=== PATIENT | male | born 1970 | race Caucasian/White ===

== ENCOUNTER → 2019-10-30 12:18 | Outpatient (CLI) | payer OTHER, SELFPAY ==
[2019-10-30 13:36] LABS: Add Manual Diff / Slide Review NO; Basophils Absolute Auto 0 /uL (0-100); Basophils Percent Auto 0.7 % (0-2); Eosinophils Absolute Auto 0 /uL (0-450); Eosinophils Percent Auto 0.6 % (2-4); Hematocrit 23.6 % (41-53); Lymphocytes Absolute Auto 1100 /uL (1100-4500); Lymphocytes Percent Auto 23.2 % (25-40); Mean Corpuscular Hemoglobin 30.9 PG (26-34); Monocytes Absolute Auto 400 /uL (0-900); Monocytes Percent Auto 9.4 % (3-14); Neutrophils Absolute Auto 3200 /uL (1500-7000); Neutrophils Percent Auto 66.1 % (50-75); Platelet Count 225 X10^3/uL (150-400); Red Cell Distribution Width 12.4 % (11.6-14.8); White Blood Cell Count 4.8 X10^3/uL (4.5-11.0)
[2019-10-30 14:08] LABS: BUN Creatinine Ratio 17.1 (6-22); Blood Urea Nitrogen 12 mg/dL (9-20); Carbon Dioxide 30 mmol/L (22-32); Chloride 107 mmol/L (98-107); Estimated Glomerular Filt Rate > 60.0 mL/min (>60); Glucose 112 mg/dL (70-100); HEMOLYSIS < 15 (0-50); Potassium 4.2 mmol/L (3.4-5.1); Sodium 141 mmol/L (137-145)
[2019-10-30 15:01] LABS: HEMOLYSIS < 15 (0-50); Iron 33 ug/dL (49-181)
[2019-10-30 15:13] LABS: Percent Iron Saturation 11 % (20-50); Total Iron Binding Capacity 294 ug/dL (261-462); Transferrin 229 mg/dL (206-381)
[2019-10-30 21:15] LABS: Campylobacter Not Detected (Not Detect); Clostridium difficile toxin AB Not Detected (Not Detect); Enteroaggregative E.coli Not Detected (Not Detect); Enteropathogenic E.coli Not Detected (Not Detect); Enterotoxigenic E.coli It/st Not Detected (Not Detect); Plesiomonsa shigelloides Not Detected (Not Detect); Salmonella Not Detected (Not Detect); Shiga-like toxin-prod E.coli Not Detected (Not Detect); Vibrio Not Detected (Not Detect); Vibrio cholerae Not Detected (Not Detect); Yersinia enterocolitica Not Detected (Not Detect)
[2019-10-30 21:16] LABS: Adenovirus F 40/41 Not Detected (Not Detect); Astrovirus Not Detected (Not Detect); Cryptosporidium Not Detected (Not Detect); Cyclospora cayetanensis Not Detected (Not Detect); Entamoeba histolytica Not Detected (Not Detect); Giardia lamblia Not Detected (Not Detect); Norovirus GI/GII Not Detected (Not Detect); Rotavirus A Not Detected (Not Detect); Sapovirus Not Detected (Not Detect); Shigella/Enteroinvasive E.coli Not Detected (Not Detect)
== END ==
PROVIDERS: Specialist; Family Provider Internal Medicine; PCP Internal Medicine; Referring Provider Internal Medicine; Visit Provider Internal Medicine
DX: K92.2 Gastrointestinal hemorrhage, unspecified (principal); D64.9 Anemia, unspecified; R19.7 Diarrhea, unspecified
CPT/HCPCS: 36415; 80048; 83540; 83550; 85025; 87507

== ENCOUNTER 2019-10-30 15:30 | Inpatient (IN) | payer OTHER, SELFPAY ==
[2019-10-30] VITALS (7 sets, daily range): BP systolic 102–129; BP diastolic 54–73; PULSE 68–79; RESP 16–20; TEMP 36.4–37.5; O2SAT 98–100; BMI 25.3
--- NOTE | 2019-10-30 17:21 | PM.HP.1 ---
History of Present Illness History of Present Illness Date Patient Seen: 10/30/19 Time Patient Seen: 16:00 Chief complaint: GI BLEED Narrative: The patient is a gentleman who has been having red blood per rectum for at least the last 5 days. Never had this before. He is not quite certain how much bloody is loss but he says he feels really lousy and has been getting dizzy sometimes on standing. The blood is not black but rather dark red. The amount is difficult for him to estimate and it is variable. Does not really have abdominal pain though he does have some cramping at times. That is intermittent. He has not really had diarrhea until he started bleeding and now he is having more frequent stools. The patient has Been eating very light for the last few days. He had a normal colonoscopy performed late last year at [facility]. He was seen in the emergency room at [place] and was given a bowel prep. He was told to take half of it to clean everything out but that did not stop his bleeding. Patient History Surgical History (Updated 10/30/19 @ 17:27 by Kirit Hinkle MD) History of tonsillectomy (Acute) History of vasectomy (Acute) Family & Social History Social History: household members spouse,children Prior Living Arrangements House Safety & Behavioral: Feels Safe in Current Yes Environment Been Physically Hurt or No Threatened By a Person Suicidal Ideation Description None Suicide Plan Description No Plan Tobacco & Substance use: Smoking Status Never smoker alcohol intake frequency 0-2 drinks per day Substance Use Type does not use Meds Home Medications and Allergies Home Medications Medication Instructions Recorded Confirmed Type cetirizine 10 mg tablet 10 mg PO DAILY 10/30/19 10/30/19 History diphenhydramine HCl 25 mg capsule 25 mg PO BEDTIME PRN 10/30/19 10/30/19 History triamcinolone acetonide 0.1 % 1 applictn TOP DAILY 10/30/19 10/30/19 History topical cream zolpidem 5 mg tablet 5 mg PO BEDTIME PRN 10/30/19 10/30/19 History Allergies Allergy/AdvReac Type Severity Reaction Status Date / Time No Known Drug Allergies Allergy Verified 10/30/19 15:01 Review of Systems Review of Systems Narrative: He is basically healthy. ROS: Yes All systems reviewed with the patient and are negative except as otherwise documented Exam Narrative Exam Narrative: Cooperative no apparent distress. Eyes are nonicteric. Pupils equal round reactive to light. Conjunctivae are pale. [place]. Patient's skin is pale. No color in his cheeks. His neck is supple. There are no nodes in the neck or supraclavicular areas. Trachea is midline and mobile. Thyroid is not enlarged. Lungs are clear to auscultation without rales or rhonchi. Equal percussion. Heart regular rate and rhythm without murmur gallop. Sounds hyperdynamic. No bruit in the neck no heave lift or thrill. Abdomen is scaphoid soft nontender. No masses. Liver and spleen are not enlarged. He has a very small reducible umbilical hernia of which he was unaware. He is alert and oriented x3. Speech rate and content are appropriate affect is appropriate. On rectal exam his external exam is unremarkable. He does have some visible flex of maroon stool near his anal verge. No ulcerations or visible hemorrhoids are present. Objective Labs Labs: Patient's hematocrit from this morning was 23.6. Assessment & Plan Assessment & Plan narrative: Otherwise healthy gentleman with new onset of lower intestinal bleeding. Recent colonoscopy in June 2019 was normal. Consideration of some form of colitis either infectious or otherwise has to be given. It is unlikely to be tumor but it could be diverticuli or hemorrhoids causing this hemorrhage. Plan to bring the patient in and transfuse if his hematocrit continues to fall. Will not bowel prep all he is actively bleeding will consider an unprepped colonoscopy. It would also consider CT angiogram if the blood loss continues. Will check his coags and liver function tests. He does have a history of the use of NSAIA but stopped that about 5 days ago. Quality VTE Deep Vein Thrombosis/Pulmonary Embolism Present on Admission: No
[2019-10-30 18:17] LABS: Mean Corpuscular Hemoglobin 31.2 PG (26-34); Red Blood Cell Count 2.13 X10^6/uL (4.5-5.9)
[2019-10-30 18:18] LABS: Add Manual Diff / Slide Review NO
[2019-10-30 18:19] LABS: Basophils Absolute Auto 0 /uL (0-100); Basophils Percent Auto 0.5 % (0-2); Eosinophils Absolute Auto 0 /uL (0-450); Eosinophils Percent Auto 0.7 % (2-4); Lymphocytes Absolute Auto 1100 /uL (1100-4500); Lymphocytes Percent Auto 20.9 % (25-40); Mean Corpuscular HGB Conc 34.3 % (30-36); Mean Corpuscular Volume 90.9 fL (80-100); Monocytes Absolute Auto 400 /uL (0-900); Monocytes Percent Auto 8.3 % (3-14); Neutrophils Absolute Auto 3500 /uL (1500-7000); Neutrophils Percent Auto 69.6 % (50-75); Platelet Count 191 X10^3/uL (150-400); Red Cell Distribution Width 12.5 % (11.6-14.8); White Blood Cell Count 5.1 X10^3/uL (4.5-11.0)
[2019-10-30 18:20] LABS: Hemoglobin 6.6 g/dL (13.5-17.5)
[2019-10-30 18:22] LABS: Hematocrit 19.3 % (41-53)
[2019-10-30 18:26] LABS: INR 1.1 (0.9-1.3); Prothrombin Time 12.8 SECONDS (10.1-12.7)
[2019-10-30 18:27] LABS: Alanine Aminotransferase 14 IU/L (<50); Albumin 3.4 g/dL (3.5-5.0); Albumin Globulin Ratio 1.7 (1.0-2.8); Alkaline Phosphatase 29 U/L (38-126); Aspartate Aminotransferase 26 IU/L (17-59); BUN Creatinine Ratio 22.7 (6-22); Bilirubin Total 0.2 mg/dL (0.2-1.3); Blood Urea Nitrogen 15 mg/dL (9-20); Calcium 8.3 mg/dL (8.4-10.2); Carbon Dioxide 29 mmol/L (22-32); Chloride 106 mmol/L (98-107); Estimated Glomerular Filt Rate > 60.0 mL/min (>60); Glucose 103 mg/dL (70-100); HEMOLYSIS < 15 (0-50); Sodium 138 mmol/L (137-145); Total Protein 5.4 g/dL (6.3-8.2)
[2019-10-30 18:29] LABS: PTT Partial Thromboplastin Tim 28 SECONDS (26.4-36.2)
[2019-10-30] MEDS: SODIUM CHLORIDE 0.9% 1,000 ML 125 ML IV (20:53)
[2019-10-30] MEDS: diphenhydrAMINE 25 MG TABLET PO (20:59)
[2019-10-30] MEDS: ACETAMINOPHEN 325 MG TABLET 650 MG PO (21:00)
[2019-10-30] MEDS: ZOLPIDEM 5 MG TABLET 10 MG PO (23:41)
[2019-10-31] VITALS (15 sets, daily range): BP systolic 99–123; BP diastolic 58–76; PULSE 73–91; RESP 16–17; TEMP 36.6–37.7; O2SAT 99–100
--- NOTE | 2019-10-31 06:23 | PC.NURSE ---
Addendum entered by Moon Underwood R.N. 10/31/19 06:45: Critical Labs this morning: Hgb=6, Hct=17.5; Dr. Schaefer notified and ordered 2 units PRBCs Original Note: Pt did well with the 1unit PRBCs stating he feels less light-headed and dizzy. Still requiring a SBA to Bathroom. No BMs overnight. NS@125mL/hr Soft BP this morning
[2019-10-31 06:40] LABS: Hematocrit 17.5 % (41-53)
[2019-10-31] MEDS: ACETAMINOPHEN 325 MG TABLET 650 MG PO ×2 (08:29→13:57)
[2019-10-31] MEDS: MAGNESIUM CITRATE 300 ML SOLUTION 150 ML PO (13:57)
--- NOTE | 2019-10-31 14:11 | CM.DANOTE ---
DCP Assessment: (EMR Reviewed): Patient is a pleasant 49 year old male who was admitted to the care of Dr. Hinkle for an acute GI bleed. Met with patient in his room and explained self and role. , Maral, was also in room. Confirmed PCP Dr. Durand. Patients reports prior to this he was healthy and fully independent with all ADLs, including driving. Patient lives in a home with his and three teenage children and works as a teacher at [employer]. I: [place] (confirmed) P: Home when stable. Patient still receiving blood transfusions and no discharge order in place yet. Informed patient on role of CM in acquiring discharge resources if any are needed. Will continue to monitor and remain available for DC planning. SN Kay Hannah RN Discharge Planning/Care Management CM Discharge Assessment Start: 10/31/19 14:09 Freq: Status: Active Protocol: Document 10/31/19 14:09 HS (Rec: 10/31/19 14:11 HS [id number]) Discharge Planning Assessment Assigned Lab Aide Kay Ragland RN/SN [place] DPOA/Assigned Designee Name Maral Major (Spouse) Contact Information [phone] Advance Directives? No History Provided By Patient,Medical Record Has Patient been admitted in last 30 No days? Prior Living Arrangements House Household Members spouse,children Type of transporation used prior to Drives own vehicle admit Independent with ADL's Yes Is patient alert and oriented? Yes Caregiver for Another Yes Barriers to Discharge No Discharge Plan Home Referrals Initiated None needed Whiteboard Updated in Patient Room with Yes name and ext. # of Lab Aide Review Status In Process Next Review Type Continued Stay Review
--- NOTE | 2019-10-31 15:44 | PC.NURSE ---
Second unit of PRBC infusing at this time, evening shift to complete. Patient tolerated first unit well, without complaints. Intermittent lightheadedness with sudden movements reports, patient agrees to call for assistance to get up and is being very cautious about moving slowly with position changes. Patient denies n/v/d, denies abdominal pain or discomfort. Reports no appetite. Urinating without difficulty, using urinal. Call light within reach.
[2019-10-31] MEDS: SODIUM CHLORIDE 0.9% 1,000 ML 125 ML IV (17:38)
[2019-10-31] MEDS: BISACODYL 5 MG TABLET 10 MG PO (17:48)
--- NOTE | 2019-10-31 17:55 | P.PN_ITS ---
Subjective Subjective Date Patient Seen: 10/31/19 Time Patient Seen: 17:10 Interval history: The patient is a gentleman who was admitted yesterday with a lower GI bleed. His morning hematocrit was 23. His repeat hematocrit was 16 and after unit of blood he did not go up. He was given 2 additional units. He was feeling quite poorly this morning when I saw him but he feels much better now after 2 units of blood. Dizziness is improved. No abdominal pain at this time. He has had 1 bowel movement today with a few flecks of blood but nothing like prior bowel movements. This is the only bowel movement he has had since he was hospitalized yesterday indicating that his bleeding is stopped. Exam Vital Signs (past 8 hours): - 10/31/19 11:00 10/31/19 13:11 10/31/19 13:30 Temperature 99.1 F 99.1 F 98.8 F Pulse Rate 81 80 90 Respiratory Rate 16 16 16 Blood Pressure 116/70 115/71 99/58 L Pulse Oximetry 100 10/31/19 15:40 10/31/19 16:50 10/31/19 17:29 Temperature 99.7 F H 99.5 F Pulse Rate 79 80 Respiratory Rate 16 16 Blood Pressure 115/70 116/71 Pulse Oximetry 99 100 99 Oxygen Delivery Method Room Air Oxygen Flow Rate 0 Narrative Exam Narrative: Abdomen is scaphoid soft nontender Objective Labs Result Diagrams: 10/31/19 05:36 10/30/19 18:01 Labs: Laboratory Results - last 24 hr 10/30/19 10/30/19 10/30/19 18:01 18:01 18:01 WBC 5.1 RBC 2.13 L Hgb 6.6 L* Hct 19.3 L* MCV 90.9 MCH 31.2 MCHC 34.3 RDW 12.5 Plt Count 191 Neut % (Auto) 69.6 Lymph % (Auto) 20.9 L Vernon % (Auto) 8.3 Eos % (Auto) 0.7 L Baso % (Auto) 0.5 Neut # (Auto) 3500 Lymph # (Auto) 1100 Vernon # (Auto) 400 Eos # (Auto) 0 Baso # (Auto) 0 PT 12.8 H INR 1.1 APTT 28 Sodium Potassium Chloride Carbon Dioxide BUN Creatinine Estimated GFR BUN/Creatinine Ratio Glucose Calcium Total Bilirubin AST ALT Alkaline Phosphatase Total Protein Albumin Globulin Albumin/Globulin Ratio Blood Type O Positive Antibody Screen Negative Crossmatch See Detail 10/30/19 10/31/19 18:01 05:36 WBC RBC Hgb 6.0 L* Hct 17.5 L* MCV MCH MCHC RDW Plt Count Neut % (Auto) Lymph % (Auto) Vernon % (Auto) Eos % (Auto) Baso % (Auto) Neut # (Auto) Lymph # (Auto) Vernon # (Auto) Eos # (Auto) Baso # (Auto) PT INR APTT Sodium 138 Potassium 4.0 Chloride 106 Carbon Dioxide 29 BUN 15 Creatinine 0.66 Estimated GFR > 60.0 BUN/Creatinine Ratio 22.7 H Glucose 103 H Calcium 8.3 L Total Bilirubin 0.2 AST 26 ALT 14 Alkaline Phosphatase 29 L Total Protein 5.4 L Albumin 3.4 L Globulin 2.0 Albumin/Globulin Ratio 1.7 Blood Type Antibody Screen Crossmatch Assessment & Plan Assessment & Plan narrative: Lower GI bleed. Stool studies were negative for an infectious cause of his bleeding. Will proceed to colonoscopy. I ordered cautious bowel prep. I suspect he will not need a great deal as he has been on a clear liquid diet for days. Risks of bleeding, infection, perforation which would necessitate a major operation, failure to find removal lesions and the potential tattoo were all discussed. He appears to understand and wishes to proceed. He is on the schedule for tomorrow late morning. Quality VTE Deep Vein Thrombosis/Pulmonary Embolism Present on Admission: No
[2019-10-31 18:30] LABS: Hematocrit 21.7 % (41-53); Hemoglobin 7.5 g/dL (13.5-17.5)
--- NOTE | 2019-10-31 21:27 | PC.NURSE ---
Pt is A&O in room, facial color has improved since begining of shift post transfusion. Pt is ambulating without FWW which is an improvement since start of shift. Patient reports feeling more improved in fatigued and a slight increase in energy. Patient denies dizziness w/ standing. Hat was placed in toilet after 2nd stool on jeronimo shift. Patient cont. to have straight bloody stools in large volumes. Pt is growing concerned as well as nurse in number of volumes. Call placed to provider regarding concerns and post transfusion lab values. Provider is aware of large increased volumes of bloody stools. No further action take at this time as VSS, unless VS change, to call back.
[2019-10-31] MEDS: ZOLPIDEM 5 MG TABLET 10 MG PO (23:01)
[2019-11-01] VITALS (28 sets, daily range): BP systolic 97–142; BP diastolic 58–83; PULSE 67–97; RESP 10–19; TEMP 36.3–37.4; O2SAT 95–100; BMI 25.3
[2019-11-01] MEDS: SODIUM CHLORIDE 0.9% 1,000 ML 125 ML IV (01:38)
--- NOTE | 2019-11-01 05:15 | PC.NURSE ---
Addendum entered by Moon Underwood R.N. 11/01/19 07:01: @0700 Pt had 350mL mrak red blood stool liquid Addendum entered by Moon Underwood R.N. 11/01/19 06:22: contacted Dr. Schaefer regarding pt not having any BM overnight and his last stools being bloody on evening shift. He does not want any additional interventions for now and said pt's scope will be for this afternoon Original Note: Pt doing well. Kept NPO after MN. No BMs overnight; reported 4 on evening shift with mark red blood. Vitals stable. Pt's color in face looks good. NS@125mL/hr
[2019-11-01 07:02] LABS: Add Manual Diff / Slide Review NO; Basophils Absolute Auto 0 /uL (0-100); Basophils Percent Auto 0.9 % (0-2); Eosinophils Absolute Auto 100 /uL (0-450); Eosinophils Percent Auto 2.4 % (2-4); Lymphocytes Absolute Auto 1300 /uL (1100-4500); Lymphocytes Percent Auto 34.3 % (25-40); Mean Corpuscular HGB Conc 34.2 % (30-36); Mean Corpuscular Hemoglobin 30.1 PG (26-34); Monocytes Absolute Auto 400 /uL (0-900); Neutrophils Absolute Auto 2000 /uL (1500-7000); Neutrophils Percent Auto 52.4 % (50-75); Platelet Count 149 X10^3/uL (150-400); Red Blood Cell Count 2.06 X10^6/uL (4.5-5.9); Red Cell Distribution Width 14.2 % (11.6-14.8); White Blood Cell Count 3.8 X10^3/uL (4.5-11.0)
[2019-11-01 07:13] LABS: Hematocrit 18.1 % (41-53); Hemoglobin 6.2 g/dL (13.5-17.5)
--- NOTE | 2019-11-01 08:14 | PC.NURSE ---
Addendum entered by Yari Marrero R.N. 11/01/19 14:46: First unit of FFP up and infusing, patient is tolerating well. VSS.... When scanning the FFP, to do checkes... The FFP registration number is scanning as the product, product and expiration date not scanning, we had to overide them. Expiration date is correct and the most recent one written on the bag. Tolerating well and vss. Addendum entered by Yari Marrero R.N. 11/01/19 13:50: Patient back from colonscopy. states that patient continues having bleeding and he had a large clot that could not be passes by the scope. He is down to his CT scan now. Second unit of PRBCs up and infusing and 15 minute vital signs wnl. Patient is anxious and down, explained to him that we will let him know what is going as soon as we talk to ...He states that he just wants to know what is going on with him. Addendum entered by Yari Marrero R.N. 11/01/19 10:05: Pt down to colonoscopy at 0930. Before he left, he had a 100cc of crimson colored bowel movement. This consistency was thick with no stool present. Patient also voided 200cc of yellow urine. First unit of PRBCs started at 0851 and he is tolerating this well. Original Note: 0800- Patient is A&Ox3. He denies pain. He is concerned about what is going on with him. Per vice president biostatistics RN in pass down, she relayed that patient did have a 350cc bloody stool. His H&H is now 6.2 and 18.1, yesterday it was 7.5 and 21.7. He is asymptomatic and resting in his chair. Patient is NPO. He is going to be getting 2U of PRBCs this morning.
--- NOTE | 2019-11-01 10:31 | PM.PREOP ---
Pre-operative Note Interval Note History & Physical reviewed/Exam performed by Physician: Yes Changes to H&P: Yes H&P completed within 30 days and has changed as indicated here:: Patient rib blood this morning and was given additional blood. We will perform a colonoscopy and see if we can identify the site of bleeding. If not we will consider CT angiogram. ASA Class (for procedural sedation): I
[2019-11-01] MEDS: fentaNYL 250 MCG/5 ML INJ IV (11:20)
[2019-11-01] MEDS: MIDAZOLAM 5 MG/5 ML VIAL IV (11:20)
--- NOTE | 2019-11-01 11:36 | PM.OP.ENDO ---
Operative Date/Time/Diagnoses Date of procedure: 11/01/19 Time of procedure: 11:36 Pre-op diagnosis: Gastrointestinal bleed probable lower Post-op diagnosis: same (Hiatal hernia) Procedure & Clinicians Study performed: Flexible sigmoidoscopy. Abandoned at 80 cm due to a wall of clot which could not be negotiated around. Same procedure as scheduled: Yes Indications: Lower intestinal bleeding acute blood loss anemia with recurrence. Surgeon: Kirit Hinkle Procedure Notes SCOAP/Timeout: Performed Procedure in detail: The patient is brought to the endoscopy suite due to continued passage of blood per rectum and a hematocrit periodically dropping to his low is 16. The blood was variously described as bright red and maroon. Patient was placed in left lateral decubitus position and digital exam performed. There was maroon stool on the gloved finger. Scope was inserted and advanced slowly. Extensive clot was Noted as I progressed to 80 cm. At that level I could not go further because I could not identify lumen due to the large amount of clot obscuring it. I did not identify an active bleeding source at this level though it is certainly possible a bleeding source which had stopped could have been there and not seen. The scope was retroflexed in the rectum and I could see the area media around the anus. There was no evidence of any hemorrhoid or ulceration. Because the stool was actually darker than described I decided to perform an upper endoscopy as well to rule out an ulcer or other source of upper intestinal bleeding. The patient was agreeable to the same. It became an indicated procedure based on the findings of the colonoscopy. Topical anesthetic of Cetacaine was sprayed on the oropharynx. The patient was given additional sedation and a bite block inserted. Scope was advanced under direct vision in the esophagus. The esophagus was normal to the GE junction. The GE junction was noted at 39 cm. There was a small Schatzki ring that had no evidence of significant narrowing of the esophagus. There were no ulcers in the area. The scope was passed into the stomach which insufflated well though it was difficult for the patient hold air. I could identify no lesions in the body or antrum except for some slight information on the lip of the pylorus. The pyloric channel was narrowed but I was able to pass the scope through it. The duodenum was unremarkable to the 3rd part. The scope was red back into the stomach and retroflexed. I could see a hiatal hernia from below. There was no evidence of ulceration or inflammation in the proximal stomach. In fact there was no blood at all in the upper tract. The scope was slowly removed and the patient tolerated the procedure well Scope withdrawal time: Not applicable Sedation minutes: 27 Findings: hiatal hernia and other findings (Large amount of clot in the colon to 80 cm. ) Specimen(s): none sent Complications: none Post-procedure Plan for aftercare: Return to the floor. Perform a CT angiogram of the mesenteric system. Disposition: PACU
--- NOTE | 2019-11-01 12:08 | SUR.PHASEI ---
Blood transfusion finisged in PACU. Report given. Denies pain and nausea.
[2019-11-01 13:04] LABS: Add Manual Diff / Slide Review NO; Basophils Absolute Auto 0 /uL (0-100); Basophils Percent Auto 0.8 % (0-2); Eosinophils Absolute Auto 0 /uL (0-450); Eosinophils Percent Auto 1.2 % (2-4); Lymphocytes Absolute Auto 1200 /uL (1100-4500); Lymphocytes Percent Auto 31.1 % (25-40); Mean Corpuscular Hemoglobin 29.8 PG (26-34); Mean Corpuscular Volume 87.6 fL (80-100); Monocytes Absolute Auto 400 /uL (0-900); Monocytes Percent Auto 11.4 % (3-14); Neutrophils Absolute Auto 2200 /uL (1500-7000); Neutrophils Percent Auto 55.5 % (50-75); Platelet Count 151 X10^3/uL (150-400); Red Blood Cell Count 2.31 X10^6/uL (4.5-5.9); White Blood Cell Count 3.9 X10^3/uL (4.5-11.0)
[2019-11-01 13:08] LABS: Hematocrit 20.2 % (41-53); Hemoglobin 6.9 g/dL (13.5-17.5)
--- NOTE | 2019-11-01 13:49 | DI.CT.S_ITS ---
PROCEDURE: CT ANGIO ABDOMEN PELVIS INDICATIONS: continued intestinal bleed (small bowel or colonic)?source TECHNIQUE: After the administration of intravenous contrast, 2.5 mm sections acquired from the diaphragm to the iliac crests. 10 mm maximum intensity projection (MIP) coronal and sagittal reformats were then performed. For radiation dose reduction, the following was used: automated exposure control. COMPARISON: None. FINDINGS: Image quality: Excellent. Extravascular tissues: Left basilar atelectasis is seen. Heart size is normal. Liver is normal in size and enhancement. Gallbladder is within normal limits. Biliary system is non dilated. Pancreas enhances normally. Spleen is normal in size and enhancement. No adrenal nodules. Kidneys are normal in size and enhancement, without hydronephrosis. Non-opacified small bowel loops demonstrate normal wall thickness and caliber. There is no colonic wall thickening. Mild air and fluid distended colonic loops are seen and measures up to 5.3 cm in the mid to distal sigmoid colon. No focal area of stricture is noted. No free fluid or air. No retroperitoneal or mesenteric adenopathy. No ventral hernias. No suspicious bony abnormalities. No vertebral body compression fractures. Abdominal aorta: Abdominal aorta is normal in size and show normal contrast opacification. No evidence of aortic dissection. No aortic aneurysm. Mesenteric arteries: The celiac axis, superior and inferior mesenteric arteries show normal contrast opacification with no stenosis or aneurysm. Bilateral visualized iliac and femoral arteries are well-opacified with no aneurysm or significant stenosis. Renal arteries: Single right renal artery and single left renal artery are well opacified with no significant stenosis or aneurysm. IMPRESSION: 1. No abdominal aortic aneurysm or dissection. Well-opacified celiac trunk, superior and inferior mesenteric arteries and bilateral renal arteries with no hemodynamically significant stenosis or aneurysm. Bilateral iliac arteries and femoral arteries are within normal limits. 2. Nonspecific air and fluid distended colonic loops. No abnormal colonic wall thickening. No evidence of bowel structure. No free fluid or free air. 3. No stomach or small bowel wall thickening. No abdominal or pelvic lymphadenopathy. Dictated by: Dion Lambert M.D. on 11/01/2019 at 15:45 Approved by: Dion Lambert M.D. on 11/01/2019 at 15:50
[2019-11-01 17:45] LABS: Hematocrit 24.4 % (41-53); Hemoglobin 8.3 g/dL (13.5-17.5)
--- NOTE | 2019-11-01 17:52 | P.DS_ITS ---
History of Present Illness History of Present Illness Chief complaint: GI BLEED Narrative: The patient is a gentleman who has been having red blood per rectum for at least the last 5 days. Never had this before. He is not quite certain how much bloody is loss but he says he feels really lousy and has been getting dizzy sometimes on standing. The blood is not black but rather dark red. The amount is difficult for him to estimate and it is variable. Does not really have abdominal pain though he does have some cramping at times. That is intermittent. He has not really had diarrhea until he started bleeding and now he is having more frequent stools. The patient has Been eating very light for the last few days. He had a normal colonoscopy performed late last year at [facility]. He was seen in the emergency room at [facility] and was given a bowel prep. He was told to take half of it to clean everything out but that did not stop his bleeding. Discharge Providers Provider Date of admission: 10/30/19 15:30 Discharge Date: 11/01/19 Primary care physician: Frank Durand MD Consults: 10/30/19 17:14 Consult to Discharge Planning Routine Comment: 11/01/19 12:43 Consult to Discharge Planning Routine Comment: Discharge provider: Kirit Hinkle MD Summary Hospital Course Discharge Diagnosis: Acute blood loss anemia 2nd exact source unknown at this time. Hospital Course: Patient was admitted. The morning prior to admission his hematocrit was 23 and at the time of admission. Later that day his hematocrit was 19. His PT INR and PTT were within normal limits. His platelet count was normal. His liver function tests were normal. He was transfused 1 unit the night of admission. The following morning he was still profoundly anemic and hennessy d no external blood loss but was given 2 additional units of blood. His hematocrit ronna to 22 but he had no external blood loss for over 24 hours. He was begun on a cautious bowel prep anticipating an attempt at colonoscopy. He rebled last night during the bowel prep and this morning had a hematocrit of 18. He was given 3 additional units along with 2 units of FFP today. He underwent an EGD which showed no evidence of a source of GI bleeding and attempted colonoscopy which showed no evidence of hemorrhoidal disease but there was clot from the rectum to 80 cm from the anal verge. At that point I could not progress further as the lumen was obscured with clot. His platelet count has been normal. His most recent hematocrit after transfusion is 24. He has had no further bleeding per rectum since about 8:00 a.m. this morning. I a had the patient undergo a CT angiogram which failed to reveal any evidence of a bleeding source. Because my options for identifying the source of his ble eding have been exhausted I called [facility] and spoke with Dr. Eugenio Alcala of the gastroenterology department. He suggested transfer for capsule endoscopy and possible enteroscopy. (Neither test is available here). I spoke with the patient and his . There was some hesitancy because of the present Covid 19 restrictions placed on their family due to a child with lung disease, and potential exposures after transfer, but ultimately they decided to proceed and allow me to transfer him to [facility]. I spoke with Dr. Martino, the hospitalist, who kindly accepted him in transfer. Exam Vital Signs (past 8 hours): - 11/01/19 11:25 11/01/19 11:26 11/01/19 11:31 Temperature 98.5 F Pulse Rate 97 H 93 H 89 Respiratory Rate 14 10 L 12 Blood Pressure 102/70 108/63 97/59 L Pulse Oximetry 98 95 99 11/01/19 11:34 11/01/19 11:36 11/01/19 11:41 Temperature 98.3 F 98.6 F Pulse Rate 91 H 89 93 H Respiratory Rate 19 16 14 Blood Pressure 97/59 L 100/68 98/60 Pulse Oximetry 99 100 11/01/19 11:56 11/01/19 12:09 11/01/19 12:22 Temperature 98.8 F 98.2 F Pulse Rate 91 H 82 96 H Respiratory Rate 14 16 18 Blood Pressure 108/71 113/66 132/83 Pulse Oximetry 100 99 100 11/01/19 12:55 11/01/19 13:07 11/01/19 13:22 Temperature 98.4 F 98.2 F 98.4 F Pulse Rate 67 96 H 67 Respiratory Rate 16 18 16 Blood Pressure 109/60 132/83 107/64 Pulse Oximetry 99 98 11/01/19 13:25 11/01/19 13:29 11/01/19 14:36 Temperature 98.4 F 98.0 F 98.6 F Pulse Rate 83 73 70 Respiratory Rate 16 16 16 Blood Pressure 101/59 L 101/59 L 108/69 Pulse Oximetry 97 11/01/19 14:45 11/01/19 16:51 11/01/19 17:39 Temperature 98.0 F 99.3 F 99.1 F Pulse Rate 70 68 85 Respiratory Rate 16 16 16 Blood Pressure 108/69 116/71 134/82 Pulse Oximetry 100 Oxygen Delivery Method Room Air Oxygen Flow Rate 0 Narrative Exam Narrative: Lungs clear. Heart regular rate and rhythm without gallop. A bdomen is soft nontender without mass Objective Labs Result Diagrams: 11/01/19 17:31 10/30/19 18:01 Labs: Laboratory Results - last 24 hr 10/30/19 10/31/19 11/01/19 18:01 18:22 06:38 WBC 3.8 L RBC 2.06 L Hgb 7.5 L 6.2 L* Hct 21.7 L 18.1 L* MCV 88.0 MCH 30.1 MCHC 34.2 RDW 14.2 Plt Count 149 L Neut % (Auto) 52.4 Lymph % (Auto) 34.3 Glades % (Auto) 10.0 Eos % (Auto) 2.4 Baso % (Auto) 0.9 Neut # (Auto) 2000 Lymph # (Auto) 1300 [place] # (Auto) 400 Eos # (Auto) 100 Baso # (Auto) 0 Blood Type O Positive Antibody Screen Negative Crossmatch See Detail 11/01/19 11/01/19 12:53 17:31 WBC 3.9 L RBC 2.31 L Hgb 6.9 L* 8.3 L Hct 20.2 L* 24.4 L MCV 87.6 MCH 29.8 MCHC 34.0 RDW 15.0 H Plt Count 151 Neut % (Auto) 55.5 Lymph % (Auto) 31.1 Glades % (Auto) 11.4 Eos % (Auto) 1.2 L Baso % (Auto) 0.8 Neut # (Auto) 2200 Lymph # (Auto) 1200 [place]ades # (Auto) 400 Eos # (Auto) 0 Baso # (Auto) 0 Blood Type Antibody Screen Crossmatch Discharge Plan Discharge Plan Patient Disposition: [facility] Other facility: [facility] Under care of provider: Dr. Martino and Dr. Eugenio Alcala Discharge comment: Transferred for testing/interventions not available at our hospital Discharge orders & Medications Follow up/Referrals: Frank Durand MD [Primary Care Provider] - Discharge Health Status Multidrug resistant organism: No MDRO Precautions: Weed Diet/Activity/Treatments Diet: Nothing by Mouth Diet comment: Has been NPO today. Tolerated clear liquids yesterday. Discharge Data Primary Care Provider: Frank Durand Quality VTE Deep Vein Thrombosis/Pulmonary Embolism Present on Admission: No
--- NOTE | 2019-11-01 19:24 | PC.NURSE ---
Addendum entered by To Barton R.N. 11/01/19 19:48: Call to to give report. Per Yasmin at transport center Report was called in by provider and only questions were needed by Yasmin. Brief synopsis was given regarding patient history while in hosp. VSS, Labs and high risk medications that were given in last 24hrs. Original Note: [facility] transport team arrived at 1920 to transport patient. Patient was just wrapping up FFP transfusion. VSS. Pt has some anxiety regarding transport, and going to a new hospital. Pt's family is at bedside saying their goodbyes. CD was obtained by MRI for transport packet. patient left in stable condition. A&O x4.
== END 2019-11-01 19:20 | disposition short-term general hospital (02) | DRG 378 ==
PROVIDERS: Surgery; Admitting Provider Specialist; Family Provider Internal Medicine; PCP Internal Medicine; Referring Provider Specialist; Visit Provider Specialist
PROC: 0DJD8ZZ Inspection of Lower Intestinal Tract, Via Natural or Artificial Opening Endoscopic (ICD-10-PCS; CPT 45378; principal; 2019-11-01 10:45)
PROC: 0DJ08ZZ Inspection of Upper Intestinal Tract, Via Natural or Artificial Opening Endoscopic (ICD-10-PCS; CPT 43235; 2019-11-01 10:45)
DX: K92.1 Melena (principal); D62 Acute posthemorrhagic anemia
CPT/HCPCS: 36415; 36430; 45330; 74174; 80048; 80053; 83540; 83550; 85014; 85018; 85025; 85610; 85730; 86850; 86900; 86901; 86927; 87507; 99152; 99153; 99221; 99231; P9016; G0379; J2250; J3010; Q9967

== ENCOUNTER → 2024-02-15 11:03 | Outpatient (CLI) | payer OTHER, SELFPAY ==
[2019-10-30 16:00] VITALS: BMI 25.3
--- NOTE | 2024-02-15 11:06 | DI.RAD.S_ITS ---
PROCEDURE: XR LUMBAR SPINE 2-3V INDICATIONS: BACK PAIN TECHNIQUE: 3 views of the lumbar spine were acquired. COMPARISON: None. FINDINGS: Bones: 5 [id number] vertebrae are present. There is normal bony alignment. No vertebral body compression fractures. No suspicious bony lesions. Multilevel lumbar spondylosis with degenerative endplate changes and endplate osteophytes. Mild mid and lower lumbar facet arthropathy. Soft tissues: Overlying bowel gas pattern is normal. No suspicious soft tissue calcifications. IMPRESSION: Lumbar spine without acute osseous abnormalities. Mild multilevel spondylosis. Dictated by: Ugo Dutton M.D. on 02/15/2024 at 13:57 Approved by: Ugo Dutton M.D. on 02/15/2024 at 13:58
== END ==
LOC: RAD 11:05
PROVIDERS: Family Provider Internal Medicine; PCP Student in an Organized Health Care Education/Training Program; Referring Provider Student in an Organized Health Care Education/Training Program; Visit Provider Student in an Organized Health Care Education/Training Program
DX: M54.50 Low back pain, unspecified (principal); M47.816 Spondylosis without myelopathy or radiculopathy, lumbar region
CPT/HCPCS: 72100